=== PATIENT | female | born 1975 | race Caucasian/White ===

== ENCOUNTER 2022-10-17 09:37 | Emergency (ER) | payer SELFPAY ==
[2022-10-17] MEDS ORDERED: Ondansetron PF 4 MG/2 ML Vial ONE (10:22)
[2022-10-17] MEDS ORDERED: Morphine 4 MG/ML VIAL ONE ×2 (10:22→12:42)
[2022-10-17 10:23] LABS: #Basophils 0.1 thou/uL (0.0-0.2); #Eosinphils 0.2 thou/uL (0.0-0.7); #Lymphocytes 2.5 thou/uL (1.20-3.40); #Monocytes 0.6 thou/uL (0.11-0.59); #Neutrophils 5.6 thou/uL (1.40-6.50); %Basophils 0.9 % (0.0-1.0); %Eosinophils 2.1 % (0.0-10.0); %Lymphocytes 27.5 % (21.0-51.0); %Neutrophils 62.5 % (42.0-75.0); Hemoglobin 12.6 g/dL (12.0-16.0); Mean Corpuscular HGB CONC 34.8 g/dL (32.0-36.0); Mean Corpuscular Hemoglobin 33.6 pg (27.0-31.0); Mean Corpuscular Volume 96.5 fl (78.0-98.0); Mean Platelet Volume 7.5 fL (7.4-10.4); Platelet Count 273 10x3/uL (130-400); RBC Distribution Width 12.5 % (11.5-14.5); Red Blood Cell (RBC) Count 3.76 mill/uL (4.20-5.40)
[2022-10-17 10:43] LABS: ALT (SGPT) 50 U/L (8-55); AST (SGOT) 18 U/L (5-34); Albumin 4.1 g/dL (3.5-5.0); Alkaline Phosphatase 83 U/L (40-110); Anion Gap 13 mmol/L (10-20); BUN (Urea Nitrogen) 10 mg/dL (7.0-18.7); Bilirubin, Total 0.4 mg/dL (0.2-1.2); Calc. Creatinine Clearance 0 mL/min (70-130); Calcium 9.7 mg/dL (7.8-10.44); Carbon Dioxide 26 mmol/L (22-29); Chloride 102 mmol/L (98-107); Estimated GFR 95; Globulin 2.9 g/dL (2.4-3.5); Glucose 88 mg/dL (70-105); Potassium 4.4 mmol/L (3.5-5.1); Sodium 137 mmol/L (136-145)
[2022-10-17] MEDS ORDERED: Iopamidol-370 76% 500 ML 1 ML ONE (15:55)
== END 2022-10-17 14:00 | disposition home or self-care (01) ==
LOC: ERS 09:37
DX: K42.9 Umbilical hernia without obstruction or gangrene (principal); E11.40 Type 2 diabetes mellitus with diabetic neuropathy, unspecified; E78.5 Hyperlipidemia, unspecified; I10 Essential (primary) hypertension
CPT/HCPCS: 74177; 80053; 83605; 85025; 96374; 96375; 96376; J2270; J2405; Q9967

== ENCOUNTER 2022-10-27 13:56 | Observation (INO) | payer SELFPAY ==
[~2022-10-27 13:56] MED LIST: Iopamidol-370 76% 500 ML 1 ML ONE
[2022-10-27 14:23] LABS: #Eosinphils 0.2 thou/uL (0.0-0.7); #Monocytes 0.6 thou/uL (0.11-0.59); #Neutrophils 5.5 thou/uL (1.40-6.50); %Basophils 0.5 % (0.0-1.0); %Eosinophils 2.4 % (0.0-10.0); %Monocytes 6.7 % (0.0-10.0); %Neutrophils 58.4 % (42.0-75.0); Mean Corpuscular HGB CONC 34.8 g/dL (32.0-36.0); Mean Corpuscular Hemoglobin 34.1 pg (27.0-31.0); Mean Platelet Volume 7.3 fL (7.4-10.4); Platelet Count 260 10x3/uL (130-400); RBC Distribution Width 12.6 % (11.5-14.5); Red Blood Cell (RBC) Count 3.82 mill/uL (4.20-5.40); White Blood Cell (WBC) Count 9.4 10x3/uL (4.8-10.8)
[2022-10-27 14:50] LABS: ALT (SGPT) 28 U/L (8-55); AST (SGOT) 18 U/L (5-34); Albumin 4.3 g/dL (3.5-5.0); Alkaline Phosphatase 78 U/L (40-110); Anion Gap 15 mmol/L (10-20); BUN (Urea Nitrogen) 12 mg/dL (7.0-18.7); Bilirubin, Total 0.3 mg/dL (0.2-1.2); Calc. Creatinine Clearance 0 mL/min (70-130); Calcium 9.8 mg/dL (7.8-10.44); Carbon Dioxide 22 mmol/L (22-29); Chloride 103 mmol/L (98-107); Estimated GFR 95; Globulin 3.3 g/dL (2.4-3.5); Glucose 119 mg/dL (70-105); Lipase 47 U/L (8-78); Potassium 4.1 mmol/L (3.5-5.1); Protein, Total 7.6 g/dL (6.0-8.3); Sodium 136 mmol/L (136-145)
[2022-10-27 15:08] LABS: BHCG - Serum Negative (NEGATIVE); Pregs Control Bar Appear? YES (CONTROL BAR)
[2022-10-27 15:09] LABS: Pregs Control Background? CLEAR/WHITE (CLR/WHITE)
[2022-10-27 16:07] LABS: Bacteria/HPF 4+ HPF (None Seen); Bilirubin Negative (Negative); Blood, Urine Negative (Negative); Clarity Turbid (Clear); Glucose, Urine (Dipstick) Normal (Negative); Ketone, Urine Negative (Negative); Leukocyte 25 Leu/uL (Negative); Nitrite Negative (Negative); Protein, Urine (Dipstick) Negative (Neg-Trace); RBC/HPF 0-3 HPF (0-3); Specific Gravity, Urine 1.014 (1.002-1.036); Squamous Epithelial 21-50 HPF (0-3); Urobilinogen Normal mg/dL (Less than 2); pH, Urine 6.5 (5.0-9.0)
[2022-10-27] MEDS ORDERED: Ondansetron PF 4 MG/2 ML Vial ONE ×3 (16:48→21:09)
[2022-10-27] MEDS ORDERED: Morphine 4 MG/ML VIAL ONE ×3 (16:48→21:09)
[2022-10-27] MEDS ORDERED: Morphine 4 MG/ML VIAL SLOW IVP PRN ×2 (20:22→22:37)
[2022-10-27] MEDS ORDERED: Ondansetron PF 4 MG/2 ML Vial IVP PRN ×2 (20:30→22:37)
[2022-10-27] MEDS ORDERED: Ondansetron ODT 4 MG TAB SL PRN (20:30)
[2022-10-27] MEDS ORDERED: Sodium Chloride 0.9% 1,000 ML IV SCH (20:30)
[2022-10-27] MEDS ORDERED: hydrALAZINE 20 MG/ML VIAL SLOW IVP PRN (22:37)
[2022-10-27] MEDS ORDERED: Ipratropium/Albuterol 3 ML NEB NEB PRN (22:37)
[2022-10-27] MEDS ORDERED: HYDROcodone/Acetaminophen 10/325 mg Tablet PO PRN (22:37)
[2022-10-27] MEDS ORDERED: Promethazine HCl 25 MG/ML VIAL IM PRN (22:37)
[2022-10-27] MEDS ORDERED: Ketorolac Tromethamine 30 MG/ML VIAL IVP PRN (22:37)
[2022-10-27] MEDS ORDERED: HumaLOG 300 UNITS/3 ML VIAL SC PRN (22:37)
[2022-10-27] MEDS ORDERED: Dextrose 50% Abboject 50 ML SYRINGE SLOW IVP PRN ×2 (22:37)
[2022-10-27] MEDS ORDERED: Dextrose 5% in Water 1,000 ML IV PRN (22:37)
[2022-10-27] MEDS ORDERED: Famotidine/PF 20 mg/2ml Vial SLOW IVP SCH (22:45)
[2022-10-28] MEDS ORDERED: Morphine 4 MG/ML VIAL ONE ×2 (00:23→04:01)
[2022-10-28] MEDS ORDERED: D5 1/2 NS w/20 mEq KCL 1,000 ML ONE (00:36)
[2022-10-28] MEDS: D5 1/2 NS w/20 mEq KCL 1,000 ML IV SCH ×3 (00:45→08:04)
[2022-10-28] MEDS ORDERED: Bacitracin 1 PK ONE (01:09)
[2022-10-28] MEDS ORDERED: HYDROcodone/Acetaminophen 10/325 mg Tablet ONE (02:40)
[2022-10-28] MEDS ORDERED: Ondansetron PF 4 MG/2 ML Vial ONE (04:31)
[2022-10-28 08:22] VITALS: BP 127/77; TEMP 97.6
[2022-10-28 08:46] LABS: SARS-CoV-2 NAA Rapid Test Not Detected (NotDetected)
[2022-10-28] MEDS ORDERED: Famotidine/PF 20 mg/2ml Vial SLOW IVP SCH (09:00)
[2022-10-28] MEDS ORDERED: Famotidine 20 MG TAB PO SCH (09:00)
[2022-10-28] MEDS ORDERED: Fentanyl 100 MCG/2 ML VIAL ONE (11:19)
== END 2022-10-28 10:00 | disposition admitted as inpatient to this hospital (09) ==
LOC: ERS 13:56 → ERHOLD 15:00
PROVIDERS: ADMIT Surgery; ATTEND Surgery
DX: K42.9 Umbilical hernia without obstruction or gangrene (principal); E11.40 Type 2 diabetes mellitus with diabetic neuropathy, unspecified; E78.5 Hyperlipidemia, unspecified; I10 Essential (primary) hypertension; K76.0 Fatty (change of) liver, not elsewhere classified; Z88.0 Allergy status to penicillin; Z91.018 Allergy to other foods; Z89.022 Acquired absence of left finger(s); Z20.822 Contact with and (suspected) exposure to COVID-19
CPT/HCPCS: 36415; 36416; 74177; 80053; 81003; 81015; 83690; 84703; 85025; J2270; J2405; J2550; J3010; J3480; J7050; Q0162; Q9967; U0002

== ENCOUNTER 2022-10-28 08:51 | Day surgery (SDC) | payer SELFPAY ==
[2022-10-27 15:06] VITALS: BMI 32.1
[2022-10-28] MEDS ORDERED: Scopolamine 1.5 mg/72 hour Patch ONE (08:55)
[2022-10-28] MEDS ORDERED: Bupivacaine/Epinephrine 0.25% 30 ML VIAL ONE (09:03)
[2022-10-28] MEDS ORDERED: fentaNYL PF 100 MCG/2 ML SYRINGE ONE (09:09)
[2022-10-28] MEDS ORDERED: Levofloxacin 500 mg/D5W 100 ml Premix Bag ONE (09:17)
[2022-10-28] MEDS ORDERED: NEOSTIGMINE 3 MG/3 ML SYR 3 MG/3 ML SYRINGE ONE (09:38)
[2022-10-28] MEDS ORDERED: PROPOFOL 200 MG/20 ML VIAL ONE (09:38)
[2022-10-28] MEDS ORDERED: Albuterol HFA (OR) 200 PUFF INH ONE (09:38)
[2022-10-28] MEDS ORDERED: ePHEDrine 50 MG/ML VIAL ONE (09:38)
[2022-10-28] MEDS ORDERED: Ondansetron PF 4 MG/2 ML Vial ONE (09:38)
[2022-10-28] MEDS ORDERED: Rocuronium Bromide 10 MG/ML (10ML VIAL) ONE (09:38)
[2022-10-28] MEDS ORDERED: Ketorolac Tromethamine 30 MG/ML VIAL ONE (09:38)
[2022-10-28] MEDS ORDERED: Lidocaine 1% PF 5 ML VIAL ONE (09:38)
[2022-10-28] MEDS ORDERED: PHENYLEPHRINE-NS 100 MCG/ML 10 ML SYRINGE ONE (09:38)
[2022-10-28] MEDS ORDERED: Glycopyrrolate 0.2 MG/ML 5 ML SYRINGE ONE (09:38)
[2022-10-28] MEDS ORDERED: Fentanyl 100 MCG/2 ML VIAL ONE (12:33)
[2022-10-28] MEDS ORDERED: Morphine 2 MG/ML VIAL ONE ×3 (13:20→14:35)
[2022-10-28] MEDS ORDERED: HYDROcodone/Acetaminophen 5/325 mg Tablet ONE (14:34)
== END 2022-10-28 18:00 | disposition home or self-care (01) ==
LOC: SDC 08:51
PROVIDERS: ATTEND Surgery
PROC: 0WUF4JZ Supplement Abdominal Wall with Synthetic Substitute, Percutaneous Endoscopic Approach (ICD-10-PCS; principal; 2022-10-28)
PROC: 8E0W4CZ Robotic Assisted Procedure of Trunk Region, Percutaneous Endoscopic Approach (ICD-10-PCS; principal; 2022-10-28)
DX: K43.6 Other and unspecified ventral hernia with obstruction, without gangrene (principal); K66.0 Peritoneal adhesions (postprocedural) (postinfection); J45.909 Unspecified asthma, uncomplicated; E78.00 Pure hypercholesterolemia, unspecified; E11.9 Type 2 diabetes mellitus without complications; I10 Essential (primary) hypertension; Z86.73 Personal history of transient ischemic attack (TIA), and cerebral infarction without residual deficits; Z87.891 Personal history of nicotine dependence; Z79.84 Long term (current) use of oral hypoglycemic drugs; Z79.899 Other long term (current) drug therapy; Z88.0 Allergy status to penicillin; Z89.022 Acquired absence of left finger(s)
CPT/HCPCS: C1781; J1885; J1956; J2272; J2405; J2704; J3010; J3490

== ENCOUNTER 2022-12-08 22:00 | Inpatient (IN) | payer SELFPAY ==
[2022-12-08 22:17] LABS: #Eosinphils 0.1 thou/uL (0.0-0.7); #Lymphocytes 1.7 thou/uL (1.20-3.40); #Monocytes 0.7 thou/uL (0.11-0.59); #Neutrophils 11.1 thou/uL (1.40-6.50); %Basophils 0.3 % (0.0-1.0); %Lymphocytes 12.5 % (21.0-51.0); %Monocytes 5.1 % (0.0-10.0); %Neutrophils 81.1 % (42.0-75.0); Hemoglobin 13.5 g/dL (12.0-16.0); Mean Corpuscular HGB CONC 34.8 g/dL (32.0-36.0); Mean Corpuscular Hemoglobin 34.7 pg (27.0-31.0); Mean Corpuscular Volume 99.7 fl (78.0-98.0); Mean Platelet Volume 6.9 fL (7.4-10.4); Platelet Count 292 10x3/uL (130-400); RBC Distribution Width 12.7 % (11.5-14.5); Red Blood Cell (RBC) Count 3.89 mill/uL (4.20-5.40); White Blood Cell (WBC) Count 13.7 10x3/uL (4.8-10.8)
[2022-12-08 22:35] LABS: INR-International Normal Ratio 0.9; PTT 29.4 sec (22.9-36.1)
[2022-12-08 22:36] LABS: ALT (SGPT) 40 U/L (8-55); AST (SGOT) 57 U/L (5-34); Albumin 4.4 g/dL (3.5-5.0); Alkaline Phosphatase 78 U/L (40-110); Anion Gap 15 mmol/L (10-20); BUN (Urea Nitrogen) 10 mg/dL (7.0-18.7); Bilirubin, Total 0.6 mg/dL (0.2-1.2); CK (CPK) 3516 U/L (29-168); Calc. Creatinine Clearance 0 mL/min (70-130); Calcium 9.8 mg/dL (7.8-10.44); Carbon Dioxide 22 mmol/L (22-29); Chloride 99 mmol/L (98-107); Estimated GFR 79; Glucose 116 mg/dL (70-105); Potassium 4.3 mmol/L (3.5-5.1); Protein, Total 7.4 g/dL (6.0-8.3); Sodium 132 mmol/L (136-145)
[2022-12-08 22:49] LABS: Acetaminophen Less than 10.0 mcg/mL (10.0-30.0); Alcohol Less than 10 mg/dL (Less than 10); Salicylate Less than 8.0 mg/dL (15.0-30.0)
[2022-12-08] MEDS ORDERED: Lactated Ringer's 1,000 ML IV SCH (23:30)
[2022-12-09] MEDS ORDERED: Dicyclomine 10 MG CAP PO PRN (00:37)
[2022-12-09] MEDS ORDERED: HumaLOG 300 UNITS/3 ML VIAL SC PRN (01:11)
[2022-12-09] MEDS ORDERED: Dextrose 50% Abboject 50 ML SYRINGE SLOW IVP PRN (01:11)
[2022-12-09] MEDS ORDERED: Dextrose 5% in Water 1,000 ML IV PRN (01:11)
[2022-12-09 02:41] LABS: Bilirubin Negative (Negative); Blood, Urine Negative (Negative); Clarity Clear (Clear); Glucose, Urine (Dipstick) Normal (Negative); Ketone, Urine 10 mg/dL (Negative); Leukocyte Negative Leu/uL (Negative); Nitrite Negative (Negative); Protein, Urine (Dipstick) 10 mg/dL (Neg-Trace); Specific Gravity, Urine 1.012 (1.002-1.036); Urobilinogen Normal mg/dL (Less than 2)
[2022-12-09 02:47] LABS: Amphetamine Not Detected (NotDetected); Barbiturates Screen Not Detected (NotDetected); Benzodiazepine Screen Not Detected (NotDetected); Cocaine Metabolite Screen Not Detected (NotDetected); Methadone Not Detected (NotDetected); Methamphetamine Not Detected (NotDetected); Opiate Screen Not Detected (NotDetected); Oxycodone Screen Not Detected (NotDetected); Phencyclidine (PCP) Not Detected (NotDetected); THC/Cannabinoid Screen Not Detected (NotDetected); Tricyclic Screen Detected (NotDetected)
[2022-12-09] MEDS ORDERED: Morphine 2 MG/ML VIAL SLOW IVP SCH (04:00)
[2022-12-09] MEDS ORDERED: Morphine 2 MG/ML VIAL ONE (04:06)
[2022-12-09 08:27] LABS: Cardiac Risk 7.1 (Less than 4.5); Cholesterol 276 mg/dl (< 200 Desired); HDL Cholesterol 39 mg/dL (>60 Neg Risk); Triglycerides 605 mg/dL (Less than 150)
[2022-12-09] MEDS ORDERED: Metoprolol Tartrate 25 MG TAB ONE (08:27)
[2022-12-09] MEDS ORDERED: Acetaminophen 325 MG TAB ONE (08:27)
[2022-12-09] MEDS ORDERED: Aspirin Chewable 81 MG TAB ONE (08:27)
[2022-12-09] MEDS ORDERED: clonazePAM 0.5 MG TAB ONE (08:27)
[2022-12-09] MEDS: FLUoxetine HCl 20 MG CAP PO SCH (08:43)
[2022-12-09] MEDS: Aspirin 81 mg Enteric Coated Tablet PO SCH (08:43)
[2022-12-09] MEDS: Gabapentin 100 MG CAP PO SCH (08:43)
[2022-12-09] MEDS: clonazePAM 0.5 MG TAB PO SCH (08:43)
[2022-12-09] MEDS: Metoprolol Tartrate 25 MG TAB PO SCH ×2 (08:44→20:24)
[2022-12-09] MEDS: Acetaminophen 325 MG TAB PO PRN (08:44)
[2022-12-09] MEDS: Sodium Chloride 0.9% 1,000 ML IV SCH ×2 (10:45→21:10)
[2022-12-09] MEDS ORDERED: HYDROcodone/Acetaminophen 5/325 mg Tablet ONE (11:30)
[2022-12-09] MEDS: HYDROcodone/Acetaminophen 5/325 mg Tablet PO PRN ×3 (11:51→22:45)
[2022-12-09 12:06] LABS: #Eosinphils 0.2 thou/uL (0.0-0.7); #Lymphocytes 2.2 thou/uL (1.20-3.40); #Monocytes 0.6 thou/uL (0.11-0.59); #Neutrophils 8.5 thou/uL (1.40-6.50); %Basophils 0.4 % (0.0-1.0); %Eosinophils 1.8 % (0.0-10.0); %Lymphocytes 19.2 % (21.0-51.0); %Monocytes 5.1 % (0.0-10.0); %Neutrophils 73.6 % (42.0-75.0); Hemoglobin 12.7 g/dL (12.0-16.0); Mean Corpuscular HGB CONC 33.7 g/dL (32.0-36.0); Mean Corpuscular Hemoglobin 33.8 pg (27.0-31.0); Mean Platelet Volume 7.2 fL (7.4-10.4); Platelet Count 283 10x3/uL (130-400); RBC Distribution Width 12.9 % (11.5-14.5); Red Blood Cell (RBC) Count 3.75 mill/uL (4.20-5.40); White Blood Cell (WBC) Count 11.5 10x3/uL (4.8-10.8)
[2022-12-09 12:35] LABS: ALT (SGPT) 46 U/L (8-55); AST (SGOT) 71 U/L (5-34); Albumin 3.9 g/dL (3.5-5.0); Alkaline Phosphatase 73 U/L (40-110); Anion Gap 13 mmol/L (10-20); BUN (Urea Nitrogen) 12 mg/dL (7.0-18.7); Bilirubin, Total 0.5 mg/dL (0.2-1.2); CRP (Inflammatory) 2.24 mg/dL (= or < 0.5); Calc. Creatinine Clearance 0 mL/min (70-130); Calcium 9.1 mg/dL (7.8-10.44); Carbon Dioxide 24 mmol/L (22-29); Chloride 102 mmol/L (98-107); Estimated GFR 98; Globulin 2.8 g/dL (2.4-3.5); Glucose 146 mg/dL (70-105); Potassium 3.3 mmol/L (3.5-5.1); Protein, Total 6.7 g/dL (6.0-8.3); Sodium 136 mmol/L (136-145)
[2022-12-09 15:22] LABS: SARS-CoV-2 NAA Rapid Test Not Detected (NotDetected)
[2022-12-09 16:07] VITALS: BMI 30.9
[2022-12-09] MEDS: QUEtiapine 100 MG TAB PO SCH (20:24)
[2022-12-09] MEDS: Atorvastatin Calcium 40 MG TAB PO SCH (20:24)
[2022-12-09] MEDS: Ketorolac Tromethamine 30 MG/ML VIAL IVP PRN (20:26)
[2022-12-10] MEDS: Ketorolac Tromethamine 30 MG/ML VIAL IVP PRN ×2 (04:16→12:45)
[2022-12-10] MEDS: Aspirin 81 mg Enteric Coated Tablet PO SCH (09:43)
[2022-12-10] MEDS: HYDROcodone/Acetaminophen 5/325 mg Tablet PO PRN ×2 (09:44→21:21)
[2022-12-10] MEDS: clonazePAM 0.5 MG TAB PO SCH (09:46)
[2022-12-10] MEDS: Gabapentin 100 MG CAP PO SCH (09:47)
[2022-12-10] MEDS: FLUoxetine HCl 20 MG CAP PO SCH (09:50)
[2022-12-10] MEDS: Metoprolol Tartrate 25 MG TAB PO SCH ×2 (10:28→21:21)
[2022-12-10] MEDS: Sodium Chloride 0.9% 1,000 ML IV SCH (10:28)
[2022-12-10] MEDS ORDERED: Potassium Chloride 20 MEQ TAB PO SCH (10:45)
[2022-12-10] MEDS: QUEtiapine 100 MG TAB PO SCH (21:21)
[2022-12-10] MEDS: Atorvastatin Calcium 40 MG TAB PO SCH (21:21)
[2022-12-11 05:24] LABS: #Eosinphils 0.2 thou/uL (0.0-0.7); #Lymphocytes 2.3 thou/uL (1.20-3.40); #Monocytes 0.6 thou/uL (0.11-0.59); #Neutrophils 6.9 thou/uL (1.40-6.50); %Basophils 0.5 % (0.0-1.0); %Eosinophils 2.4 % (0.0-10.0); %Lymphocytes 22.7 % (21.0-51.0); %Monocytes 5.7 % (0.0-10.0); %Neutrophils 68.7 % (42.0-75.0); Hemoglobin 12.3 g/dL (12.0-16.0); Mean Corpuscular HGB CONC 34.7 g/dL (32.0-36.0); Mean Platelet Volume 7.1 fL (7.4-10.4); Platelet Count 251 10x3/uL (130-400); RBC Distribution Width 12.7 % (11.5-14.5); Red Blood Cell (RBC) Count 3.52 mill/uL (4.20-5.40)
[2022-12-11 05:53] LABS: ALT (SGPT) 61 U/L (8-55); AST (SGOT) 57 U/L (5-34); Albumin 3.4 g/dL (3.5-5.0); Alkaline Phosphatase 81 U/L (40-110); Anion Gap 12 mmol/L (10-20); BUN (Urea Nitrogen) 9 mg/dL (7.0-18.7); Bilirubin, Total 0.3 mg/dL (0.2-1.2); CK (CPK) 1072 U/L (29-168); Calc. Creatinine Clearance 140 mL/min (70-130); Calcium 8.4 mg/dL (7.8-10.44); Carbon Dioxide 22 mmol/L (22-29); Chloride 107 mmol/L (98-107); Estimated GFR 108; Globulin 2.6 g/dL (2.4-3.5); Glucose 126 mg/dL (70-105); Potassium 4.3 mmol/L (3.5-5.1); Sodium 137 mmol/L (136-145)
[2022-12-11] MEDS ORDERED: Lidocaine 1% w/Epinephrine 1:100K 20 ML VIAL ONE (07:01)
[2022-12-11] MEDS: HYDROcodone/Acetaminophen 5/325 mg Tablet PO PRN ×2 (09:55→21:31)
[2022-12-11] MEDS: clonazePAM 0.5 MG TAB PO SCH (09:55)
[2022-12-11] MEDS: Aspirin 81 mg Enteric Coated Tablet PO SCH (09:55)
[2022-12-11] MEDS: FLUoxetine HCl 20 MG CAP PO SCH (09:56)
[2022-12-11] MEDS: Metoprolol Tartrate 25 MG TAB PO SCH ×2 (09:57→21:32)
[2022-12-11] MEDS: Acetaminophen 325 MG TAB PO PRN (15:06)
[2022-12-11] MEDS: Ketorolac Tromethamine 30 MG/ML VIAL IVP PRN (17:31)
[2022-12-11 18:02] LABS: HBSAg Index 0.38 S/CO (0-0.99); Hep A IgM AB Non-Reactive (NonReactive); Hep B Surf Ag Non-Reactive S/CO (NonReactive); Hep C IgG Ab Non-Reactive (NonReactive); Hep C Index 0.04 S/CO (0-0.79); Hepatitis B Core IgM Abs Non-Reactive (NonReactive)
[2022-12-11] MEDS: QUEtiapine 100 MG TAB PO SCH (21:32)
[2022-12-11] MEDS: Atorvastatin Calcium 40 MG TAB PO SCH (21:32)
[2022-12-12 05:46] LABS: #Basophils 0.1 thou/uL (0.0-0.2); #Eosinphils 0.2 thou/uL (0.0-0.7); #Monocytes 0.5 thou/uL (0.11-0.59); #Neutrophils 5.8 thou/uL (1.40-6.50); %Basophils 0.6 % (0.0-1.0); %Eosinophils 1.9 % (0.0-10.0); %Lymphocytes 23.7 % (21.0-51.0); %Monocytes 5.3 % (0.0-10.0); %Neutrophils 68.5 % (42.0-75.0); Hemoglobin 12.6 g/dL (12.0-16.0); Mean Corpuscular HGB CONC 34.2 g/dL (32.0-36.0); Mean Corpuscular Hemoglobin 34.4 pg (27.0-31.0); Platelet Count 279 10x3/uL (130-400); RBC Distribution Width 12.6 % (11.5-14.5); Red Blood Cell (RBC) Count 3.67 mill/uL (4.20-5.40); White Blood Cell (WBC) Count 8.5 10x3/uL (4.8-10.8)
[2022-12-12 05:59] LABS: ALT (SGPT) 61 U/L (8-55); AST (SGOT) 45 U/L (5-34); Albumin 3.7 g/dL (3.5-5.0); Alkaline Phosphatase 89 U/L (40-110); Anion Gap 14 mmol/L (10-20); BUN (Urea Nitrogen) 11 mg/dL (7.0-18.7); Bilirubin, Total 0.6 mg/dL (0.2-1.2); Calc. Creatinine Clearance 127 mL/min (70-130); Carbon Dioxide 25 mmol/L (22-29); Chloride 103 mmol/L (98-107); Estimated GFR 98; Globulin 2.7 g/dL (2.4-3.5); Glucose 133 mg/dL (70-105); Potassium 4.1 mmol/L (3.5-5.1); Protein, Total 6.4 g/dL (6.0-8.3); Sodium 138 mmol/L (136-145)
[2022-12-12] MEDS: HYDROcodone/Acetaminophen 5/325 mg Tablet PO PRN (07:05)
[2022-12-12 08:27] VITALS: TEMP 98
[2022-12-12] MEDS ORDERED: Lisinopril 5 MG TAB PO SCH (09:00)
[2022-12-12] MEDS: clonazePAM 0.5 MG TAB PO SCH (09:12)
[2022-12-12] MEDS: FLUoxetine HCl 20 MG CAP PO SCH (09:12)
[2022-12-12] MEDS: Aspirin 81 mg Enteric Coated Tablet PO SCH (09:12)
[2022-12-12 12:30] VITALS: BP 114/69
== END 2022-12-12 14:30 | disposition home or self-care (01) | DRG 982 ==
LOC: ERS 22:00 → ERHOLD 23:34 → NEURO 12-09 14:11 → OBSVTOIN 12-09 20:00
PROVIDERS: ADMIT Student in an Organized Health Care Education/Training Program; ATTEND Internal Medicine
PROC: 0JH602Z Insertion of Monitoring Device into Chest Subcutaneous Tissue and Fascia, Open Approach (ICD-10-PCS; principal; 2022-12-11)
DX: M62.82 Rhabdomyolysis (principal); E87.1 Hypo-osmolality and hyponatremia; I50.22 Chronic systolic (congestive) heart failure; M72.2 Plantar fascial fibromatosis; R41.82 Altered mental status, unspecified; I11.0 Hypertensive heart disease with heart failure; J45.909 Unspecified asthma, uncomplicated; F32.A Depression, unspecified; F41.9 Anxiety disorder, unspecified; F17.210 Nicotine dependence, cigarettes, uncomplicated; E78.00 Pure hypercholesterolemia, unspecified; R53.1 Weakness; Z20.822 Contact with and (suspected) exposure to COVID-19; E78.2 Mixed hyperlipidemia; Z83.3 Family history of diabetes mellitus; Z82.49 Family history of ischemic heart disease and other diseases of the circulatory system; Z68.31 Body mass index [BMI] 31.0-31.9, adult; Z86.73 Personal history of transient ischemic attack (TIA), and cerebral infarction without residual deficits; Z88.0 Allergy status to penicillin; Z79.4 Long term (current) use of insulin; Z79.899 Other long term (current) drug therapy; Z79.84 Long term (current) use of oral hypoglycemic drugs; Z98.890 Other specified postprocedural states; Z98.51 Tubal ligation status; Z89.022 Acquired absence of left finger(s); E66.01 Morbid (severe) obesity due to excess calories; E11.42 Type 2 diabetes mellitus with diabetic polyneuropathy
CPT/HCPCS: 33285; 36415; 36416; 70450; 70551; 76705; 80053; 80061; 80074; 80306; 80307; 81003; 82550; 84484; 85025; 85379; 85610; 85652; 85730; 86140; 93005; 93306; 93880; 93970; 95712; 95819; 95957; 96374; C1764; G0378; J1815; J1885; J2272; J7050; J7120; U0002